=== PATIENT | male | born 1955 | race Two or more races ===

== ENCOUNTER 2017-02-18 16:14 | Emergency (ER) | payer MEDICAID ==
[~2017-02-18] VITALS: Ht 172.7 cm; Wt 79.4 kg
[2017-02-19] MEDS ORDERED: SODIUM CHLORIDE 0.9% 1,000 ML IV ONE (01:38)
[2017-02-19] MEDS ORDERED: ASPirin 81 mg TAB PO ONE (01:45)
[2017-02-19 01:56] LABS: Basophils # (auto) 0.1 uL; Basophils % (auto) 0.9 % (0.0-2.0); CONDITION Y; Eosinophils # (auto) 0.3 uL; Hematocrit 42.3 % (41.0-53.0); Hemoglobin 13.9 g/dL (13.5-17.5); Lymphocytes % (auto) 21.8 % (10.0-50.0); Mean Corpuscular Hemoglobin 30.1 pg (28.0-32.0); Mean Corpuscular Hgb Conc. 32.8 g/dL (32.0-36.0); Mean Corpuscular Volume 91.6 fL (80.0-100.0); Mean Platelet Volume 7.8 fL (7.4-10.4); Monocytes # (auto) 0.5 uL; Monocytes % (auto) 5.6 % (0.0-12.0); Neutrophils # (auto) 6.4 uL; Neutrophils % (auto) 68.7 % (37.0-80.0); Platelet Count (auto) 326 10^3/uL (140-450); Red Cell Distribution Width 13.9 % (11.6-16.0); White Blood Cell 9.3 10^3/uL (4.4-10.8)
[2017-02-19] MEDS ORDERED: IOHEXOL 350 MG/ML 100ML IJ ONE (02:02)
[2017-02-19 02:08] LABS: INR 0.96 (0.9-1.15); Partial Thromboplastin Time 30.9 sec (22.64-33.71); Prothrombin Time 10.5 sec (9.37-12.3)
[2017-02-19 02:30] LABS: Albumin 3.3 g/dL (3.4-5.0); BUN/Creatinine Ratio 19.4; Bilirubin, Total 0.7 mg/dL (0.2-1.0); Calcium 8.7 mg/dL (8.5-10.1); Potassium 4.5 mmol/L (3.5-5.1); Total Protein 7.3 g/dL (6.4-8.2)
[2017-02-19 02:34] LABS: Temperature: 23.1 C (20.0-25.0)
[2017-02-19 02:42] VITALS: BP 140/97
== END 2017-02-19 04:53 | disposition home or self-care (01) ==
LOC: EDBD 16:14 → ER 16:14
DX: J40 Bronchitis, not specified as acute or chronic (principal); J90 Pleural effusion, not elsewhere classified
CPT/HCPCS: 36415; 71275; 80053; 83880; 84484; 85025; 85610; 85730; 93005; 96360; 96361; 99285; J7030; Q9967

== ENCOUNTER 2017-10-11 11:34 | Emergency (ER) | payer MEDICAID ==
[~2017-10-11] VITALS: Ht 177.8 cm; Wt 72.6 kg
[2017-10-11 11:57] VITALS: BP 138/82
== END 2017-10-11 12:42 | disposition home or self-care (01) ==
LOC: EDBD 11:34 → ER 11:34
DX: T83.038A Leakage of other urinary catheter, initial encounter (principal); R33.9 Retention of urine, unspecified; R10.9 Unspecified abdominal pain
CPT/HCPCS: 51702

== ENCOUNTER 2020-06-19 15:25 | Emergency (ER) | payer MEDICAID ==
[~2020-06-19] VITALS: Ht 177.8 cm; Wt 77.1 kg
[~2020-06-19 15:25] MED LIST: AML5T PO; ASPI-231 PO; ATOR10TA PO; LISI-646 PO
[2020-06-19 16:21] VITALS: BP 138/78
[2020-06-19 17:13] LABS: Albumin 3.7 g/dL (3.4-5.0); Anion Gap 4 (5-15); BUN/Creatinine Ratio 19.4; Blood Urea Nitrogen 18 mg/dL (7-18); Calcium 8.8 mg/dL (8.5-10.1); Carbon Dioxide 27 mmol/L (21-32); Chloride 107 mmol/L (98-107); GFR African American 105 mL/min; GFR Non-African American 86 mL/min; Glucose 76 mg/dL (74-106); Potassium 4.1 mmol/L (3.5-5.1); Sodium 138 mmol/L (136-145)
[2020-06-19 17:16] LABS: Basophils # (auto) 0.1 10 ^3/uL (0-0.2); Basophils % (auto) 0.8 % (0.0-2.0); Eosinophils # (auto) 0.4 10 ^3/uL (0-0.8); Eosinophils % (auto) 4.7 % (0.0-7.0); Hematocrit 42.2 % (41.0-53.0); Lymphocytes # (auto) 1.8 10 ^3/uL (0.4-5.4); Lymphocytes % (auto) 21.6 % (10.0-50.0); Mean Corpuscular Hgb Conc. 33.2 g/dL (32.0-36.0); Mean Corpuscular Volume 90.3 fL (80.0-100.0); Monocytes # (auto) 0.8 10 ^3/uL (0-1.3); Monocytes % (auto) 9.8 % (0.0-12.0); Neutrophils # (auto) 5.2 10 ^3/uL (1.6-8.6); Neutrophils % (auto) 63.1 % (37.0-80.0); Platelet Count (auto) 280 10^3/uL (140-450); Red Blood Cells 4.67 10^6/uL (4.5-5.90); Red Cell Distribution Width 13.7 % (11.8-14.3); White Blood Cell 8.3 10^3/uL (4.4-10.8)
[2020-06-19 17:20] LABS: Alanine Aminotransferase 36 U/L (16-61); Alkaline Phosphatase 106 U/L (45-117); Aspartate Aminotransferase 21 U/L (15-37); Bilirubin, Total 0.5 mg/dL (0.2-1.0); Total Protein 7.8 g/dL (6.4-8.2)
== END 2020-06-19 17:57 | disposition home or self-care (01) ==
LOC: ER 15:25
DX: J18.9 Pneumonia, unspecified organism (principal); R07.89 Other chest pain; Z20.828 Contact with and (suspected) exposure to other viral communicable diseases
CPT/HCPCS: 36415; 71045; 80053; 84484; 85025; 87426

== ENCOUNTER 2021-03-14 14:51 | Emergency (ER) | payer MEDICAID ==
[~2021-03-14] VITALS: Ht 177.8 cm; Wt 79.4 kg
[~2021-03-14 14:51] MED LIST changes: -LISI-646 PO; +LISI20TA28 PO
[2021-03-14 15:35] LABS: Basophils # (auto) 0.1 10 ^3/uL (0-0.2); Basophils % (auto) 0.9 % (0.0-2.0); Eosinophils # (auto) 0.3 10 ^3/uL (0-0.8); Eosinophils % (auto) 3.2 % (0.0-7.0); Hematocrit 39.3 % (41.0-53.0); Hemoglobin 13.5 g/dL (13.5-17.5); Lymphocytes # (auto) 1.6 10 ^3/uL (0.4-5.4); Mean Corpuscular Hemoglobin 31.2 pg (28.0-32.0); Mean Corpuscular Hgb Conc. 34.2 g/dL (32.0-36.0); Mean Corpuscular Volume 91.1 fL (80.0-100.0); Monocytes # (auto) 0.6 10 ^3/uL (0-1.3); Monocytes % (auto) 7.9 % (0.0-12.0); Neutrophils # (auto) 5.5 10 ^3/uL (1.6-8.6); Red Blood Cells 4.32 10^6/uL (4.5-5.90); Red Cell Distribution Width 13.6 % (11.8-14.3); White Blood Cell 8.1 10^3/uL (4.4-10.8)
[2021-03-14 15:47] LABS: Alanine Aminotransferase 24 U/L (16-61); Anion Gap 5 (5-15); Aspartate Aminotransferase 18 U/L (15-37); BUN/Creatinine Ratio 21.7; Blood Urea Nitrogen 23 mg/dL (7-18); Calcium 8.2 mg/dL (8.5-10.1); Carbon Dioxide 24 mmol/L (21-32); Chloride 110 mmol/L (98-107); GFR African American 90 mL/min; GFR Non-African American 74 mL/min; Glucose 107 mg/dL (74-106); Potassium 4.1 mmol/L (3.5-5.1); Sodium 139 mmol/L (136-145)
[2021-03-14 15:51] LABS: Alkaline Phosphatase 100 U/L (45-117); Bilirubin, Total 0.5 mg/dL (0.2-1.0); Total Protein 6.7 g/dL (6.4-8.2)
[2021-03-14] MEDS ORDERED: DexAMETHasone SOD PHOS 10MG/1ML VIAL INJ IV ONE (19:15)
[2021-03-14] MEDS ORDERED: DexAMETHasone SOD PHOS 10MG/1ML VIAL INJ ONE (20:07)
[2021-03-14 20:13] VITALS: BP 133/87
== END 2021-03-14 20:15 | disposition home or self-care (01) ==
LOC: ER 14:51
DX: R06.00 Dyspnea, unspecified (principal); R05 Cough; I10 Essential (primary) hypertension; I25.2 Old myocardial infarction; F17.210 Nicotine dependence, cigarettes, uncomplicated; I25.10 Atherosclerotic heart disease of native coronary artery without angina pectoris; Z20.822 Contact with and (suspected) exposure to COVID-19
CPT/HCPCS: 36415; 71045; 80053; 84484; 85025; 87426; 93005; 96374; 99285; J1100

== ENCOUNTER 2021-05-08 08:00 | Inpatient (IN) | payer MEDICAID ==
[~2021-05-08] VITALS: Ht 180.3 cm; Wt 78.5 kg
[~2021-05-08 08:00] MED LIST changes: -ASPI-231 PO; +ASPI1TAB20 PO
[2021-05-08 09:32] LABS: Basophils # (auto) 0 10 ^3/uL (0-0.2); Basophils % (auto) 0.6 % (0.0-2.0); Eosinophils # (auto) 0.2 10 ^3/uL (0-0.8); Eosinophils % (auto) 2.9 % (0.0-7.0); Hematocrit 39.6 % (41.0-53.0); Hemoglobin 12.8 g/dL (13.5-17.5); Lymphocytes # (auto) 1.1 10 ^3/uL (0.4-5.4); Lymphocytes % (auto) 13.8 % (10.0-50.0); Mean Corpuscular Hemoglobin 29.8 pg (28.0-32.0); Mean Corpuscular Hgb Conc. 32.5 g/dL (32.0-36.0); Mean Corpuscular Volume 91.7 fL (80.0-100.0); Monocytes # (auto) 0.5 10 ^3/uL (0-1.3); Monocytes % (auto) 6.2 % (0.0-12.0); Neutrophils % (auto) 76.5 % (37.0-80.0); Nucleated Red Blood Cells % 0.1 %; Red Blood Cells 4.32 10^6/uL (4.5-5.90); White Blood Cell 7.9 10^3/uL (4.4-10.8)
[2021-05-08 09:43] LABS: Albumin 2.9 g/dL (3.4-5.0); Calcium 8.5 mg/dL (8.5-10.1); Magnesium 2.6 mg/dL (1.6-2.6)
[2021-05-08 09:48] LABS: BUN/Creatinine Ratio 22.7; Bilirubin, Total 0.6 mg/dL (0.2-1.0); Total Protein 6.5 g/dL (6.4-8.2)
[2021-05-08 13:36] LABS: Urine Bacteria NONE SEEN /hpf (None Seen); Urine Blood Negative /uL (Negative); Urine Specific Gravity 1.021 (1.001-1.035); Urine WBC 1 /hpf (0 - 3)
[2021-05-08] MEDS ORDERED: METOPROLOL TARTRATE 1MG/1ML-5ML VIAL IV ONE (14:00)
[2021-05-08] MEDS ORDERED: SPIRONOLACTONE 25 MG TAB PO ONE (14:00)
[2021-05-08] MEDS ORDERED: FUROSEMIDE 40 MG/4 ML VIAL IV ONE (14:00)
[2021-05-08] MEDS ORDERED: ACETAMINOPHEN 325 MG TAB PO PRN (16:15)
[2021-05-08] MEDS: ALBUTEROL SULF 2.5 MG/0.5ML(0.5%) NEB SOLN NEB SCH (18:39)
[2021-05-08] MEDS: HYDROcodone-ACET 5/325MG TAB PO PRN (19:10)
[2021-05-08] MEDS: METOPROLOL TARTRATE 25 MG TAB PO SCH (22:00)
[2021-05-09 00:18] VITALS: BP 116/66
[2021-05-09] MEDS ORDERED: levoFLOXacin 500MG 100 ML IV SCH (00:30)
[2021-05-09] MEDS ORDERED: PNEUMOCOCCAL VACC POLYS 25 MCG/0.5 ML VIAL IM ONE (00:45)
[2021-05-09] MEDS: MORPHINE SULFATE INJECTION 2 MG/ML SYRG IV PRN ×2 (04:44→05:01)
[2021-05-09 05:00] VITALS: BP 119/89
[2021-05-09 05:51] LABS: Calcium 8.7 mg/dL (8.5-10.1); Potassium 4.3 mmol/L (3.5-5.1)
[2021-05-09 05:53] LABS: BUN/Creatinine Ratio 24.5
[2021-05-09] MEDS: ALBUTEROL SULF 2.5 MG/0.5ML(0.5%) NEB SOLN NEB SCH ×2 (07:11→12:00)
[2021-05-09] MEDS: METOPROLOL TARTRATE 25 MG TAB PO SCH (08:34)
[2021-05-09 09:00] VITALS: BP 134/88
[2021-05-09] MEDS ORDERED: FUROSEMIDE 20 MG/2 ML VIAL IV SCH (10:00)
[2021-05-09] MEDS ORDERED: LISINOPRIL 10 MG TAB PO SCH (10:00)
[2021-05-09 13:00] VITALS: BP 123/87
[2021-05-09] MEDS ORDERED: ACETAMINOPHEN 325 MG TAB PO ONE (14:15)
[2021-05-09] MEDS ORDERED: LISI-716 PO (15:27)
[2021-05-09] MEDS ORDERED: METO-6 PO (15:27)
[2021-05-09] MEDS ORDERED: FURO1TAB33 PO (15:27)
[2021-05-09] MEDS ORDERED: LEVO500T31 PO (15:27)
[2021-05-09] MEDS: HYDROcodone-ACET 5/325MG TAB PO PRN (16:36)
[2021-05-09 17:00] VITALS: BP 112/65
[2021-05-10] MEDS ORDERED: METOPROLOL SUCCINATE XL 50 MG TAB PO SCH (10:00)
== END 2021-05-09 16:44 | disposition home health service (06) | DRG 133 ==
LOC: ER 08:00 → TELE 16:08 → TELE-WESTW 20:50
PROVIDERS: ADMIT Internal Medicine; ATTEND Internal Medicine
DX: J96.01 Acute respiratory failure with hypoxia (principal); I50.23 Acute on chronic systolic (congestive) heart failure; I47.2 Ventricular tachycardia; I42.9 Cardiomyopathy, unspecified; J91.8 Pleural effusion in other conditions classified elsewhere; I11.0 Hypertensive heart disease with heart failure; E78.5 Hyperlipidemia, unspecified; F17.210 Nicotine dependence, cigarettes, uncomplicated; Z20.822 Contact with and (suspected) exposure to COVID-19; Z91.14 Patient's other noncompliance with medication regimen; I25.2 Old myocardial infarction
CPT/HCPCS: 36415; 71045; 71250; 80048; 80053; 81001; 83735; 83880; 84443; 84484; 85025; 87426; 93005; 93306; 94640; 96374; 96375; 99291; G0378; J1956

== ENCOUNTER 2021-06-08 17:02 | Inpatient (IN) | payer MEDICAID ==
[~2021-06-08] VITALS: Ht 172.7 cm; Wt 73.5 kg
[~2021-06-08 17:02] MED LIST changes: -AML5T PO; +FURO1TAB33 PO; +LEVO500T31 PO; +LISI-716 PO; -LISI20TA28 PO; +METO-6 PO
[2021-06-08] MEDS ORDERED: DexAMETHasone SOD PHOS 10MG/1ML VIAL INJ IV ONE (17:45)
[2021-06-08] MEDS ORDERED: cefTRIAXone 1GM/50ML D5W 50 ML IV ONE (17:45)
[2021-06-08] MEDS ORDERED: AZITHROMYCIN 500MG/ 250ML 250 ML IV ONE (17:45)
[2021-06-08 18:47] LABS: Hematocrit 42.1 % (41.0-53.0); Mean Corpuscular Hemoglobin 30.2 pg (28.0-32.0); Mean Corpuscular Hgb Conc. 33.3 g/dL (32.0-36.0); Mean Corpuscular Volume 90.8 fL (80.0-100.0); Red Blood Cells 4.64 10^6/uL (4.5-5.90); Red Cell Distribution Width 15.3 % (11.8-14.3); White Blood Cell 8.7 10^3/uL (4.4-10.8)
[2021-06-08] MEDS ORDERED: IOHEXOL 350 MG/ML 100ML IJ ONE (18:48)
[2021-06-08 19:05] LABS: Potassium 4.9 mmol/L (3.5-5.1)
[2021-06-08 19:09] LABS: BUN/Creatinine Ratio 15.8; Bilirubin, Total 1.3 mg/dL (0.2-1.0); Total Protein 6.7 g/dL (6.4-8.2)
[2021-06-08 19:12] LABS: INR 1.16 (0.9-1.15); Partial Thromboplastin Time 33.3 sec (23.6-33.0)
[2021-06-08 19:26] LABS: Band Neutrophils % (manual) 7; Basophils % (manual) 0 (0.0-2.0); Blast Cells 0; Lymphocytes % (manual) 4 (10.0-50.0); Metamyelocytes % 0; Monocytes % (manual) 7 (0-12); Myelocytes % 0; Promyelocytes % 0; Reactive Lymphocytes 0
[2021-06-08 19:27] LABS: Eosinophils % (manual) 2 (0-7)
[2021-06-08 19:31] LABS: CRP High Sensitivity 7.91 mg/dL (< 0.3)
[2021-06-08] MEDS ORDERED: HYDROcodone-ACET 5/325MG TAB PO PRN (21:15)
[2021-06-08] MEDS ORDERED: ONDANSETRON HCL 4 MG/2 ML VIAL IV PRN (21:15)
[2021-06-08] MEDS ORDERED: MORPHINE SULFATE 4 MG/ML SYR/VIAL IV PRN (21:15)
[2021-06-08] MEDS ORDERED: ACETAMINOPHEN 325 MG TAB PO PRN (21:15)
[2021-06-08] MEDS ORDERED: DOCUSATE SOD 100 MG CAP PO PRN (21:15)
[2021-06-08] MEDS ORDERED: MORPHINE SULFATE INJECTION 2 MG/ML SYRG IV PRN (21:15)
[2021-06-08] MEDS ORDERED: NITROGLYCERIN 0.4 MG SL TAB SL PRN (21:15)
[2021-06-08] MEDS: ASCORBIC ACID 500 MG TAB PO SCH (22:00)
[2021-06-09] MEDS: FUROSEMIDE 40 MG/4 ML VIAL IV SCH ×2 (06:38→18:29)
[2021-06-09 06:52] LABS: Basophils # (auto) 0 10 ^3/uL (0-0.2); Basophils % (auto) 0.2 % (0.0-2.0); Eosinophils # (auto) 0 10 ^3/uL (0-0.8); Hematocrit 45.9 % (41.0-53.0); Hemoglobin 14.9 g/dL (13.5-17.5); Lymphocytes # (auto) 0.5 10 ^3/uL (0.4-5.4); Lymphocytes % (auto) 6.5 % (10.0-50.0); Mean Corpuscular Hgb Conc. 32.4 g/dL (32.0-36.0); Mean Corpuscular Volume 92.4 fL (80.0-100.0); Monocytes # (auto) 0.3 10 ^3/uL (0-1.3); Monocytes % (auto) 4.1 % (0.0-12.0); Neutrophils # (auto) 6.7 10 ^3/uL (1.6-8.6); Neutrophils % (auto) 89.2 % (37.0-80.0); Nucleated Red Blood Cells % 0.1 %; Red Blood Cells 4.96 10^6/uL (4.5-5.90); Red Cell Distribution Width 15.4 % (11.8-14.3); White Blood Cell 7.5 10^3/uL (4.4-10.8)
[2021-06-09 07:12] LABS: Albumin 2.6 g/dL (3.4-5.0); Calcium 8.3 mg/dL (8.5-10.1); Potassium 4.5 mmol/L (3.5-5.1)
[2021-06-09 07:16] LABS: BUN/Creatinine Ratio 21.7; Bilirubin, Total 1.2 mg/dL (0.2-1.0); Total Protein 6.5 g/dL (6.4-8.2)
[2021-06-09] MEDS ORDERED: IPRATROPIUM BROM 0.5 MG/2.5ML INH SOL NEB ONE (08:15)
[2021-06-09] MEDS ORDERED: ALBUTEROL SULF 2.5 MG/0.5ML(0.5%) NEB SOLN NEB ONE (08:15)
[2021-06-09] MEDS: cefTRIAXone 1GM/50ML D5W 50 ML IV SCH (09:00)
[2021-06-09] MEDS: METOPROLOL SUCCINATE XL 50 MG TAB PO SCH (10:00)
[2021-06-09] MEDS: MULTIPLE VITAMIN TAB PO SCH (10:00)
[2021-06-09] MEDS: ZINC SULFATE 220mg CAP or TAB PO SCH (10:00)
[2021-06-09] MEDS: ASCORBIC ACID 500 MG TAB PO SCH ×2 (10:00→22:07)
[2021-06-09] MEDS: ENOXAPARIN SOD 40 MG/0.4 ML SYRINGE SC SCH (10:00)
[2021-06-09] MEDS: AZITHROMYCIN 500MG/ 250ML 250 ML IV SCH (10:00)
[2021-06-09] MEDS: ASPirin-EC 81 mg tab PO SCH (10:00)
[2021-06-09] MEDS: methylPREDNISolone SOD SUCC 40 MG/ML VL IV SCH ×2 (12:37→21:30)
[2021-06-09 12:40] VITALS: BP 127/77
[2021-06-09] MEDS: IPRATROPIUM BROM 0.5 MG/2.5ML INH SOL NEB SCH ×2 (14:31→20:06)
[2021-06-09] MEDS: ALBUTEROL SULF 2.5 MG/0.5ML(0.5%) NEB SOLN NEB SCH ×2 (14:31→20:06)
[2021-06-09] MEDS: ATORVASTATIN 20 MG TAB PO SCH (18:29)
[2021-06-09 22:00] VITALS: BP 104/71
[2021-06-09 23:41] LABS: Urine Bacteria NONE SEEN /hpf (None Seen); Urine Blood Negative /uL (Negative); Urine Specific Gravity 1.009 (1.001-1.035); Urine WBC <1 /hpf (0 - 3)
[2021-06-10] VITALS (7 sets, daily range): BP systolic 100–114; BP diastolic 61–78
[2021-06-10] MEDS: methylPREDNISolone SOD SUCC 40 MG/ML VL IV SCH (04:04)
[2021-06-10] MEDS: FUROSEMIDE 40 MG/4 ML VIAL IV SCH ×2 (06:04→16:56)
[2021-06-10] MEDS ORDERED: REMDESIVIR PER PHARMACY 0 ML IV SCH (08:30)
[2021-06-10] MEDS: ALBUTEROL SULF HFA 90MCG INH 200DOSE IN PRN ×2 (09:25→19:13)
[2021-06-10] MEDS: ZINC SULFATE 220mg CAP or TAB PO SCH (09:50)
[2021-06-10] MEDS: cefTRIAXone 1GM/50ML D5W 50 ML IV SCH (09:50)
[2021-06-10] MEDS: DexAMETHasone SOD PHOS 10MG/1ML VIAL INJ IV SCH (09:50)
[2021-06-10] MEDS: ASPirin-EC 81 mg tab PO SCH (09:50)
[2021-06-10] MEDS: METOPROLOL SUCCINATE XL 50 MG TAB PO SCH (09:51)
[2021-06-10] MEDS: MULTIPLE VITAMIN TAB PO SCH (09:51)
[2021-06-10] MEDS: CHOLECALCIFEROL (VITD3) 2,000 UNIT CAP/TAB PO SCH (09:51)
[2021-06-10] MEDS: ASCORBIC ACID 500 MG TAB PO SCH ×2 (09:51→21:00)
[2021-06-10] MEDS: ENOXAPARIN SOD 40 MG/0.4 ML SYRINGE SC SCH (09:52)
[2021-06-10] MEDS: BUDESONIDE (INHALATION) 180 MCG IH IN SCH ×2 (10:00→19:13)
[2021-06-10] MEDS: AZITHROMYCIN 500MG/ 250ML 250 ML IV SCH (11:40)
[2021-06-10] MEDS ORDERED: REMDESIVIR 200 MG in NS 210ml LOADING DOSE ADULT IV ONE (15:00)
[2021-06-10] MEDS: ATORVASTATIN 20 MG TAB PO SCH (16:56)
[2021-06-11 05:00] VITALS: BP 120/84
[2021-06-11] MEDS: BUDESONIDE (INHALATION) 180 MCG IH IN SCH ×2 (05:56→22:00)
[2021-06-11] MEDS: ALBUTEROL SULF HFA 90MCG INH 200DOSE IN PRN ×2 (05:56→23:20)
[2021-06-11] MEDS: FUROSEMIDE 40 MG/4 ML VIAL IV SCH ×2 (06:09→17:32)
[2021-06-11 07:25] LABS: Albumin 2.5 g/dL (3.4-5.0); Calcium 8.3 mg/dL (8.5-10.1); Potassium 4.4 mmol/L (3.5-5.1)
[2021-06-11 07:28] LABS: BUN/Creatinine Ratio 35.2; Bilirubin, Total 0.4 mg/dL (0.2-1.0)
[2021-06-11 08:00] VITALS: BP 133/82
[2021-06-11] MEDS: cefTRIAXone 1GM/50ML D5W 50 ML IV SCH (08:52)
[2021-06-11] MEDS: DexAMETHasone SOD PHOS 10MG/1ML VIAL INJ IV SCH (08:53)
[2021-06-11] MEDS: ZINC SULFATE 220mg CAP or TAB PO SCH (08:53)
[2021-06-11] MEDS: METOPROLOL SUCCINATE XL 50 MG TAB PO SCH (08:54)
[2021-06-11] MEDS: MULTIPLE VITAMIN TAB PO SCH (08:54)
[2021-06-11] MEDS: ASPirin-EC 81 mg tab PO SCH (08:54)
[2021-06-11] MEDS: CHOLECALCIFEROL (VITD3) 2,000 UNIT CAP/TAB PO SCH (08:55)
[2021-06-11] MEDS: ASCORBIC ACID 500 MG TAB PO SCH ×2 (08:55→22:55)
[2021-06-11] MEDS: ENOXAPARIN SOD 40 MG/0.4 ML SYRINGE SC SCH (08:55)
[2021-06-11] MEDS: AZITHROMYCIN 500MG/ 250ML 250 ML IV SCH (10:17)
[2021-06-11 12:00] VITALS: BP 113/65
[2021-06-11] MEDS: REMDESIVIR 100mg 100 MG in SODIUM CHL 0.9% 230 ML IV SCH (15:01)
[2021-06-11 16:00] VITALS: BP 101/62
[2021-06-11] MEDS: ATORVASTATIN 20 MG TAB PO SCH (17:32)
[2021-06-11 22:00] VITALS: BP 107/58
[2021-06-11] MEDS: MUPIROCIN 2% OINT 15gm or 22gm EACHNOSTRI SCH (22:55)
[2021-06-12 05:00] VITALS: BP 102/62
[2021-06-12] MEDS: FUROSEMIDE 40 MG/4 ML VIAL IV SCH ×2 (06:41→18:07)
[2021-06-12 07:47] LABS: Albumin 3.1 g/dL (3.4-5.0); Calcium 9.1 mg/dL (8.5-10.1); Potassium 5.1 mmol/L (3.5-5.1)
[2021-06-12 07:53] LABS: BUN/Creatinine Ratio 32.3; Bilirubin, Total 0.5 mg/dL (0.2-1.0); Total Protein 7.1 g/dL (6.4-8.2)
[2021-06-12 08:00] VITALS: BP 121/79
[2021-06-12] MEDS: BUDESONIDE (INHALATION) 180 MCG IH IN SCH ×2 (08:14→22:00)
[2021-06-12] MEDS: ALBUTEROL SULF HFA 90MCG INH 200DOSE IN PRN (08:14)
[2021-06-12] MEDS: ZINC SULFATE 220mg CAP or TAB PO SCH (08:40)
[2021-06-12] MEDS: DexAMETHasone SOD PHOS 10MG/1ML VIAL INJ IV SCH (08:40)
[2021-06-12] MEDS: MUPIROCIN 2% OINT 15gm or 22gm EACHNOSTRI SCH ×2 (08:40→21:19)
[2021-06-12] MEDS: cefTRIAXone 1GM/50ML D5W 50 ML IV SCH (08:40)
[2021-06-12] MEDS: MULTIPLE VITAMIN TAB PO SCH (08:41)
[2021-06-12] MEDS: ASPirin-EC 81 mg tab PO SCH (08:41)
[2021-06-12] MEDS: CHOLECALCIFEROL (VITD3) 2,000 UNIT CAP/TAB PO SCH (08:42)
[2021-06-12] MEDS: METOPROLOL SUCCINATE XL 50 MG TAB PO SCH (08:42)
[2021-06-12] MEDS: ENOXAPARIN SOD 40 MG/0.4 ML SYRINGE SC SCH (08:42)
[2021-06-12] MEDS: ASCORBIC ACID 500 MG TAB PO SCH ×2 (08:42→21:19)
[2021-06-12] MEDS: AZITHROMYCIN 500MG/ 250ML 250 ML IV SCH (11:17)
[2021-06-12 12:00] VITALS: BP 117/73
[2021-06-12] MEDS: REMDESIVIR 100mg 100 MG in SODIUM CHL 0.9% 230 ML IV SCH (15:11)
[2021-06-12 17:00] VITALS: BP 98/73
[2021-06-12] MEDS: ATORVASTATIN 20 MG TAB PO SCH (18:08)
[2021-06-13] VITALS (7 sets, daily range): BP systolic 86–126; BP diastolic 60–86
[2021-06-13] MEDS: BUDESONIDE (INHALATION) 180 MCG IH IN SCH ×2 (00:01→11:27)
[2021-06-13] MEDS: FUROSEMIDE 40 MG/4 ML VIAL IV SCH ×2 (06:37→17:48)
[2021-06-13 08:08] LABS: Albumin 2.8 g/dL (3.4-5.0); BUN/Creatinine Ratio 40.7; Bilirubin, Total 0.5 mg/dL (0.2-1.0); Calcium 8.9 mg/dL (8.5-10.1); Total Protein 6.6 g/dL (6.4-8.2)
[2021-06-13] MEDS: cefTRIAXone 1GM/50ML D5W 50 ML IV SCH (08:58)
[2021-06-13] MEDS: DexAMETHasone SOD PHOS 10MG/1ML VIAL INJ IV SCH (08:59)
[2021-06-13] MEDS: ASPirin-EC 81 mg tab PO SCH (08:59)
[2021-06-13] MEDS: ZINC SULFATE 220mg CAP or TAB PO SCH (08:59)
[2021-06-13] MEDS: MUPIROCIN 2% OINT 15gm or 22gm EACHNOSTRI SCH ×2 (08:59→21:11)
[2021-06-13] MEDS: MULTIPLE VITAMIN TAB PO SCH (09:00)
[2021-06-13] MEDS: METOPROLOL SUCCINATE XL 50 MG TAB PO SCH (09:00)
[2021-06-13] MEDS: CHOLECALCIFEROL (VITD3) 2,000 UNIT CAP/TAB PO SCH (09:00)
[2021-06-13] MEDS: ASCORBIC ACID 500 MG TAB PO SCH ×2 (09:00→21:12)
[2021-06-13] MEDS: ENOXAPARIN SOD 40 MG/0.4 ML SYRINGE SC SCH (09:01)
[2021-06-13] MEDS: AZITHROMYCIN 500MG/ 250ML 250 ML IV SCH (11:16)
[2021-06-13] MEDS: ALBUTEROL SULF HFA 90MCG INH 200DOSE IN PRN (11:27)
[2021-06-13] MEDS: REMDESIVIR 100mg 100 MG in SODIUM CHL 0.9% 230 ML IV SCH (15:54)
[2021-06-13] MEDS: ATORVASTATIN 20 MG TAB PO SCH (17:48)
[2021-06-14] MEDS: ALBUTEROL SULF HFA 90MCG INH 200DOSE IN PRN ×2 (00:45→06:07)
[2021-06-14 05:05] VITALS: BP 100/60
[2021-06-14] MEDS: FUROSEMIDE 40 MG/4 ML VIAL IV SCH (05:51)
[2021-06-14] MEDS: BUDESONIDE (INHALATION) 180 MCG IH IN SCH (06:07)
[2021-06-14 08:08] LABS: Potassium 4.7 mmol/L (3.5-5.1)
[2021-06-14 08:15] LABS: Albumin 2.9 g/dL (3.4-5.0); BUN/Creatinine Ratio 37.2; Bilirubin, Total 0.6 mg/dL (0.2-1.0); Calcium 8.6 mg/dL (8.5-10.1); Total Protein 6.6 g/dL (6.4-8.2)
[2021-06-14 09:00] VITALS: BP 118/81
[2021-06-14] MEDS: ENOXAPARIN SOD 40 MG/0.4 ML SYRINGE SC SCH (09:51)
[2021-06-14] MEDS: MULTIPLE VITAMIN TAB PO SCH (09:52)
[2021-06-14] MEDS: ASCORBIC ACID 500 MG TAB PO SCH (09:52)
[2021-06-14] MEDS: DexAMETHasone SOD PHOS 10MG/1ML VIAL INJ IV SCH (09:52)
[2021-06-14] MEDS: CHOLECALCIFEROL (VITD3) 2,000 UNIT CAP/TAB PO SCH (09:52)
[2021-06-14] MEDS: ASPirin-EC 81 mg tab PO SCH (09:52)
[2021-06-14] MEDS: METOPROLOL SUCCINATE XL 50 MG TAB PO SCH (09:52)
[2021-06-14] MEDS: ZINC SULFATE 220mg CAP or TAB PO SCH (09:52)
[2021-06-14] MEDS: cefTRIAXone 1GM/50ML D5W 50 ML IV SCH (09:53)
[2021-06-14] MEDS: AZITHROMYCIN 500MG/ 250ML 250 ML IV SCH (09:53)
[2021-06-14] MEDS: MUPIROCIN 2% OINT 15gm or 22gm EACHNOSTRI SCH (12:35)
[2021-06-14 12:50] VITALS: BP 112/78
[2021-06-14] MEDS: REMDESIVIR 100mg 100 MG in SODIUM CHL 0.9% 230 ML IV SCH (14:28)
[2021-06-14 16:27] VITALS: BP 112/78
[2021-06-14 16:55] VITALS: BP 110/79
== END 2021-06-14 17:30 | disposition home or self-care (01) | DRG 137 ==
LOC: EDUNIT# 17:02 → ER 17:02 → EDBD 17:02 → TELE 21:09 → TELE-EAST 06-09 22:20
PROVIDERS: ADMIT Internal Medicine; ATTEND Internal Medicine
PROC: XW033E5 Introduction of Remdesivir Anti-infective into Peripheral Vein, Percutaneous Approach, New Technology Group 5 (ICD-10-PCS; principal; 2021-06-10)
DX: U07.1 COVID-19 (principal); J96.01 Acute respiratory failure with hypoxia; J12.82 Pneumonia due to coronavirus disease 2019; I50.23 Acute on chronic systolic (congestive) heart failure; N17.9 Acute kidney failure, unspecified; E88.09 Other disorders of plasma-protein metabolism, not elsewhere classified; I24.8 Other forms of acute ischemic heart disease; I11.0 Hypertensive heart disease with heart failure; J44.0 Chronic obstructive pulmonary disease with (acute) lower respiratory infection; J44.1 Chronic obstructive pulmonary disease with (acute) exacerbation; E78.5 Hyperlipidemia, unspecified; F17.200 Nicotine dependence, unspecified, uncomplicated; Z79.51 Long term (current) use of inhaled steroids; Z82.49 Family history of ischemic heart disease and other diseases of the circulatory system; Z87.440 Personal history of urinary (tract) infections; Z71.6 Tobacco abuse counseling
CPT/HCPCS: 36415; 71045; 71275; 80053; 81001; 82728; 83880; 84484; 85007; 85025; 85027; 85379; 85610; 85730; 86141; 87081; 87426; 93005; 94640; 96365; 96367; 96375; 97116; 97162; 97530; 99291; G0378; J0696; J1100

== ENCOUNTER 2021-08-03 23:53 | Emergency (ER) | payer MEDICAID ==
[~2021-08-03] VITALS: Ht 170.2 cm; Wt 70.3 kg
[~2021-08-03 23:53] MED LIST changes: -LEVO500T31 PO
[2021-08-04 00:02] VITALS: BP 138/82
[2021-08-04 01:59] LABS: Basophils # (auto) 0.1 10 ^3/uL (0-0.2); Basophils % (auto) 1.2 % (0.0-2.0); Eosinophils # (auto) 0.2 10 ^3/uL (0-0.8); Eosinophils % (auto) 2.1 % (0.0-7.0); Hematocrit 46.8 % (41.0-53.0); Hemoglobin 15.3 g/dL (13.5-17.5); Lymphocytes % (auto) 24.5 % (10.0-50.0); Mean Corpuscular Hgb Conc. 32.7 g/dL (32.0-36.0); Mean Corpuscular Volume 91.9 fL (80.0-100.0); Monocytes # (auto) 0.6 10 ^3/uL (0-1.3); Monocytes % (auto) 6.8 % (0.0-12.0); Neutrophils # (auto) 5.5 10 ^3/uL (1.6-8.6); Neutrophils % (auto) 65.4 % (37.0-80.0); Nucleated Red Blood Cells % 0.1 %; Red Blood Cells 5.09 10^6/uL (4.5-5.90); Red Cell Distribution Width 16.2 % (11.8-14.3); White Blood Cell 8.4 10^3/uL (4.4-10.8)
[2021-08-04 02:30] LABS: Albumin 3.3 g/dL (3.4-5.0); Calcium 8.8 mg/dL (8.5-10.1)
[2021-08-04 02:35] LABS: BUN/Creatinine Ratio 20.3; Bilirubin, Total 0.6 mg/dL (0.2-1.0); Total Protein 6.6 g/dL (6.4-8.2)
== END 2021-08-04 04:38 | disposition left against medical advice (07) ==
LOC: EDBD 23:53 → ER 23:53
DX: R07.89 Other chest pain (principal); I10 Essential (primary) hypertension; Z87.891 Personal history of nicotine dependence
CPT/HCPCS: 36415; 71045; 80053; 83880; 84484; 85025

== ENCOUNTER 2021-08-11 10:06 | Inpatient (IN) | payer MEDICAID ==
[~2021-08-11] VITALS: Ht 177.8 cm; Wt 39.2 kg
[2021-08-11] MEDS ORDERED: SODIUM CHLORIDE 0.9% 1,000 ML IV ONE (11:15)
[2021-08-11] MEDS ORDERED: ASPirin 81 mg TAB PO ONE (11:15)
[2021-08-11 12:13] LABS: Basophils # (auto) 0.1 10 ^3/uL (0-0.2); Basophils % (auto) 0.7 % (0.0-2.0); Eosinophils # (auto) 0.1 10 ^3/uL (0-0.8); Eosinophils % (auto) 1.4 % (0.0-7.0); Hematocrit 49.1 % (41.0-53.0); Hemoglobin 15.8 g/dL (13.5-17.5); Lymphocytes # (auto) 1.3 10 ^3/uL (0.4-5.4); Lymphocytes % (auto) 14.6 % (10.0-50.0); Mean Corpuscular Hemoglobin 29.4 pg (28.0-32.0); Mean Corpuscular Hgb Conc. 32.2 g/dL (32.0-36.0); Mean Corpuscular Volume 91.4 fL (80.0-100.0); Monocytes # (auto) 0.7 10 ^3/uL (0-1.3); Neutrophils # (auto) 6.8 10 ^3/uL (1.6-8.6); Neutrophils % (auto) 75.3 % (37.0-80.0); Nucleated Red Blood Cells % 0.2 %; Red Blood Cells 5.38 10^6/uL (4.5-5.90); White Blood Cell 9.1 10^3/uL (4.4-10.8)
[2021-08-11 12:18] LABS: Albumin 3.4 g/dL (3.4-5.0); Calcium 8.9 mg/dL (8.5-10.1); Potassium 4.6 mmol/L (3.5-5.1)
[2021-08-11 12:27] LABS: INR 1.24 (0.9-1.15); Partial Thromboplastin Time 29.1 sec (23.6-33.0)
[2021-08-11 12:31] LABS: Urine WBC None Seen /hpf (0 - 3)
[2021-08-11 12:31] LABS: Bilirubin, Total 1.9 mg/dL (0.2-1.0); Total Protein 6.8 g/dL (6.4-8.2)
[2021-08-11 12:35] LABS: BUN/Creatinine Ratio 21.7
[2021-08-11 12:48] LABS: Urine Bacteria NONE SEEN /hpf (None Seen); Urine Blood Negative /uL (Negative); Urine Specific Gravity 1.025 (1.001-1.035)
[2021-08-11] MEDS ORDERED: FUROSEMIDE 40 MG/4 ML VIAL IV ONE (16:00)
[2021-08-11] MEDS ORDERED: ACETAMINOPHEN 325 MG TAB PO PRN (21:45)
[2021-08-11] MEDS ORDERED: MORPHINE SULFATE INJECTION 2 MG/ML SYRG IV PRN (21:45)
[2021-08-11] MEDS ORDERED: ONDANSETRON HCL 4 MG/2 ML VIAL IV PRN (21:45)
[2021-08-11] MEDS ORDERED: hydrALAZINE HCL 10 MG TAB PO PRN (21:45)
[2021-08-11] MEDS ORDERED: HYDROcodone-ACET 5/325MG TAB PO PRN (21:45)
[2021-08-11] MEDS: FUROSEMIDE 40 MG/4 ML VIAL IV SCH (22:48)
[2021-08-12] MEDS ORDERED: DOXY100C2 PO (05:28)
[2021-08-12 05:29] VITALS: BP 131/81
[2021-08-12 05:58] VITALS: BP 135/81
[2021-08-12 07:29] LABS: Basophils # (auto) 0.1 10 ^3/uL (0-0.2); Basophils % (auto) 0.7 % (0.0-2.0); Eosinophils # (auto) 0.2 10 ^3/uL (0-0.8); Eosinophils % (auto) 2.9 % (0.0-7.0); Hematocrit 45.8 % (41.0-53.0); Hemoglobin 15.4 g/dL (13.5-17.5); Lymphocytes % (auto) 12.8 % (10.0-50.0); Mean Corpuscular Hemoglobin 30.3 pg (28.0-32.0); Mean Corpuscular Hgb Conc. 33.7 g/dL (32.0-36.0); Mean Corpuscular Volume 89.8 fL (80.0-100.0); Monocytes # (auto) 0.7 10 ^3/uL (0-1.3); Monocytes % (auto) 9.2 % (0.0-12.0); Neutrophils # (auto) 5.9 10 ^3/uL (1.6-8.6); Neutrophils % (auto) 74.4 % (37.0-80.0); Nucleated Red Blood Cells % 0.1 %; Red Cell Distribution Width 15.8 % (11.8-14.3); White Blood Cell 7.9 10^3/uL (4.4-10.8)
[2021-08-12 08:02] LABS: BUN/Creatinine Ratio 20.1; Calcium 8.5 mg/dL (8.5-10.1); Potassium 3.9 mmol/L (3.5-5.1)
[2021-08-12 08:45] VITALS: BP 120/64
[2021-08-12] MEDS: FUROSEMIDE 40 MG/4 ML VIAL IV SCH (09:59)
[2021-08-12] MEDS ORDERED: METOPROLOL SUCCINATE XL 50 MG TAB PO SCH (10:00)
[2021-08-12] MEDS ORDERED: ASPirin 81 mg TAB PO SCH (10:00)
[2021-08-12] MEDS ORDERED: FAMOTIDINE 20 MG TAB PO SCH (10:00)
[2021-08-12] MEDS ORDERED: LISINOPRIL 10 MG TAB PO SCH (10:00)
[2021-08-12 13:00] VITALS: BP 125/69
[2021-08-12 17:03] VITALS: BP 122/74
[2021-08-12] MEDS ORDERED: FURO1TAB31 PO (18:50)
[2021-08-12 19:08] VITALS: BP 122/74
[2021-08-12] MEDS ORDERED: ATORVASTATIN 20 MG TAB PO SCH (22:00)
== END 2021-08-12 22:25 | disposition home or self-care (01) | DRG 194 ==
LOC: ER 10:06 → TELE 21:39 → TELE-CENTR 08-12 04:48 → TELE-WESTW 08-12 16:30
PROVIDERS: ADMIT Nurse Practitioner Family; ATTEND Nurse Practitioner Family
DX: I13.0 Hypertensive heart and chronic kidney disease with heart failure and stage 1 through stage 4 chronic kidney disease, or unspecified chronic kidney disease (principal); J96.01 Acute respiratory failure with hypoxia; I50.23 Acute on chronic systolic (congestive) heart failure; I42.9 Cardiomyopathy, unspecified; N18.30 Chronic kidney disease, stage 3 unspecified; R74.8 Abnormal levels of other serum enzymes; J44.9 Chronic obstructive pulmonary disease, unspecified; E78.5 Hyperlipidemia, unspecified; Z20.822 Contact with and (suspected) exposure to COVID-19; Z79.82 Long term (current) use of aspirin; Z79.899 Other long term (current) drug therapy; Z82.49 Family history of ischemic heart disease and other diseases of the circulatory system; Z87.891 Personal history of nicotine dependence
CPT/HCPCS: 36415; 71045; 80048; 80053; 81001; 83735; 83880; 84443; 84484; 85025; 85379; 85610; 85730; 87426; 93005; 96374; G0378